=== PATIENT | female | born 1940 | race Caucasian/White ===

== ENCOUNTER 2018-03-22 09:45 | Inpatient (IN) ==
[2018-03-22] MEDS ORDERED: 0.9 % Sodium Chloride 1,000 ML IVC ONE (10:13)
[2018-03-22] MEDS ORDERED: Ondansetron 4 MG/2 ML VIAL IVP ONE (10:13)
--- NOTE | 2018-03-22 10:29 | Emergency Department Note ---
Disposition Clinical Impression: Urinary tract infection, Nausea and vomiting Disposition: Admitted As Inpatient Condition: Good General Adult HPI - General Chief complaint: ED Nausea/Vomiting/Diarrhea Stated complaint: Flu like symptoms Time Seen by Provider: 03/22/18 10:02 - History of Present Illness Pain Scale: 9 - Related Data Home Medications Medication Instructions Recorded Confirmed Acetaminophen [Tylenol] 650 mg PO Q6HR PRN 12/08/17 03/22/18 Aspirin [Adult Aspirin Regimen] 81 mg PO DAILY 12/08/17 03/22/18 Cholecalciferol (Vitamin D3) 1 cap PO DAILY 12/08/17 03/22/18 [Vitamin D3] Cyclobenzaprine [Flexeril] 10 mg PO HS PRN 12/08/17 03/22/18 Furosemide [Lasix] 20 mg PO DAILY 12/08/17 03/22/18 Oxygen [Oxygen] 2 l IN HS 12/08/17 03/22/18 Pravastatin Sodium [Pravachol] 40 mg PO DAILY 12/08/17 03/22/18 Prochlorperazine Maleate 5 mg PO DAILY PRN 12/08/17 03/22/18 [Compazine] Solifenacin Succinate [Vesicare] 10 mg PO DAILY PRN 12/08/17 03/22/18 amLODIPine [Norvasc] 5 mg PO DAILY 12/08/17 03/22/18 Pantoprazole Sodium [Protonix] 20 mg PO DAILY PRN 03/15/18 03/22/18 Albuterol Sulfate [Albuterol 1 puff IH Q4HR 03/22/18 03/22/18 Inhaler] DiphenhydraMINE [Benadryl] 25 mg PO Q6HR PRN 03/22/18 03/22/18 Multivitamin [Multivitamins] 1 each PO DAILY 03/22/18 03/22/18 Pantoprazole Sodium [Protonix] 40 mg PO BID 03/22/18 03/22/18 RX: Docusate [Colace] 50 mg PO BID 03/22/18 03/22/18 Previous Rx's Medication Instructions Recorded RX: Dexamethasone [Decadron] 4 mg PO BID #36 tab 03/15/18 Allergies Allergy/AdvReac Type Severity Reaction Status Date / Time azithromycin [From Zithromax] Allergy See Verified 03/15/18 08:52 Comments hydrochlorothiazide Allergy Hives Verified 03/15/18 08:52 [From Dyazide] levofloxacin [From Levaquin] Allergy Vomiting Verified 03/15/18 08:52 Triamterene [From Dyazide] Allergy Hives Verified 03/15/18 08:52 codeine AdvReac Mild Anxiety Verified 03/15/18 08:52 Hydromorphone [From Dilaudid] AdvReac Anxiety Verified 03/15/18 08:52 Past Medical History - Past Medical History Medical history: Reports: cancer, COPD Surgical history: Reports: appendectomy, colectomy Psychiatric history: Reports: no psych history - Social History Smoking Status: Never smoker Smokeless Tobacco Status: No Alcohol use: Reports: none Drug use: Reports: none Course Vital Signs Temperature 98.6 F 03/22/18 09:48 Pulse Rate 99 03/22/18 09:48 Respiratory Rate 18 03/22/18 09:48 Blood Pressure 100/64 03/22/18 09:48 O2 Sat by Pulse Oximetry 96 03/22/18 09:48 Temperature 98.6 F 03/22/18 10:57 Pulse Rate 81 03/22/18 11:56 Respiratory Rate 16 03/22/18 11:56 Blood Pressure 119/62 03/22/18 11:56 O2 Sat by Pulse Oximetry 97 03/22/18 11:56 Oxygen Delivery Oxygen Delivery Nasal Cannula Medical Decision Making - Lab Data Result diagrams: 03/22/18 10:13 03/22/18 10:13 Lab Results 03/22/18 03/22/18 03/22/18 Range/Units 10:11 10:13 10:13 WBC 12.8 H (4.3-11.1) K/mcL RBC 3.36 L (3.82-4.97) M/mcL Hgb 9.6 L (11.5-15.4) g/dL Hct 29.9 L (35.3-44.9) % MCV 89.0 (83.0-100.0) fL MCH 28.6 (28.0-33.3) pg MCHC 32.1 (31.6-35.5) g/dL RDW 15.5 H (11.5-14.5) % Plt Count 176 (140-400) K/mcL MPV 9.8 (9.4-12.4) fL Seg Neutrophils % 60.0 % Band Neutrophils % 26.0 H (0-4) % Lymphocytes % 6.0 % Monocytes % 4.0 % Eosinophils % 4.0 % Neutrophils # 11.0 H (1.6-8.9) K/mcL Lymphocytes # 0.8 (0.6-4.6) K/mcL Monocytes # 0.5 (0.0-1.3) K/mcL Eosinophils # 0.5 (0.0-0.6) K/mcL Toxic Granulation Present A (Not Present) Dohle Bodies Present A (Not Present) Platelet Estimate Normal (Normal) Sodium 133 L (136-145) mEq/L Potassium 3.8 (3.5-5.1) mEq/L Chloride 102 (98-107) mEq/L Carbon Dioxide 27 (23-29) mEq/L BUN 38 H (8-23) mg/dL Creatinine 2.11 H (0.60-1.20) mg/dL Est GFR ( Amer) 28 L (> 60) Est GFR (Non-Af Amer) 23 L (> 60) BUN/Creatinine Ratio 18 (6-26) Glucose 134 H (70-105) mg/dL Calculated Osmolality 287 (280-300) Calcium 9.1 (8.6-10.3) mg/dL Urine Color Yellow (Yellow) Urine Clarity Cloudy A (Clear) Urine pH 6.0 (5.0-8.0) pH Units Ur Specific [place] 1.017 (1.010-1.025) Urine Protein 30 H (Neg-Trace) mg/dL Urine Glucose (UA) Normal (Normal) mg/dL Urine Ketones Negative (Negative) mg/dL Urine Blood Trace H (Negative) Urine Nitrite Positive A (Negative) Urine Bilirubin Negative (Negative) Urine Urobilinogen Normal (Normal) mg/dL Ur Leukocyte Esterase Large H (Negative) Urine Microscopic RBC 0-3 (0-3) per hpf Urine Microscopic WBC 50-100 H (0-3) per hpf Urine Bacteria Many H (None-Few) per hpf Ur Culture Indicated? YES A (NO) Attestation Statement - Attestation Attestation: I examined this patient and my medical decision-making was reviewed with the Resident Physician. I agree with the documented findings, disposition and treatment plan as described except to the extent set forth below. Patient to ED with nausea vomiting. Sent from the cancer center for dehydration. On examination she is pale. Moaning. Abdomen soft. Incision over the right chest report which is inserted is clean and dry. Plan. Basic labs. Hydration. Admission. Patient improved after IV fluids. Labs reviewed. She does have a UTI. Rocephin started. Admitted to medicine.
[2018-03-22 10:33] LABS: Bilirubin,Urine Negative (Negative); Blood,Urine Trace (Negative); Clarity,Urine Cloudy (Clear); Color,Urine Yellow (Yellow); Glucose,Urine (UA) Normal (Normal); Ketones,Urine Negative (Negative); Leukocyte Esterase,Urine Large (Negative); Nitrite,Urine Positive (Negative); Protein,Urine 30 mg/dL (Neg-Trace); Specific Gravity,Urine 1.017 (1.010-1.025); Urobilinogen,Urine Normal (Normal)
--- NOTE | 2018-03-22 10:41 | Emergency Department Note ---
Disposition Clinical Impression: Urinary tract infection Qualifiers: Urinary tract infection type: acute cystitis Hematuria presence: without hematuria Qualified Code(s): N30.00 - Acute cystitis without hematuria Nausea and vomiting Qualifiers: Vomiting type: unspecified Vomiting Intractability: unspecified Qualified Code( s): R11.2 - Nausea with vomiting, unspecified Disposition: Admitted As Inpatient Condition: Good Time of Disposition: 12:42 Nausea/Vomiting/Diarrhea HPI - General Chief complaint: ED Nausea/Vomiting/Diarrhea Stated complaint: Flu like symptoms Time Seen by Provider: 03/22/18 10:02 Source: patient Mode of arrival: ambulatory Limitations: no limitations Nursing Notes Reviewed: Yes Vital Signs Reviewed: Yes - History of Present Illness HPI Narrative: 77-year-old female presents to the emergency department from the oncology office via Dr. CACERES after patient has been nauseous and not feeling well for the past 3 days. Patient was recently diagnosed with cervical cancer that has metastases to the rectum. She is undergone radiation treatment already with no success and then she underwent chemotherapy her first chemotherapy dose she got was exactly one week ago. She was supposed with her oncologist today when they said that she did not look well monitor come the emergency department to be admitted. Patient has been nauseous and has been vomiting. She did state that she hurts everywhere. She is unsure if this is due to the chemotherapy or if she is sick from some other sickness. Patient otherwise is having no complaints at this time. - Related Data Home Medications Medication Instructions Recorded Confirmed Acetaminophen [Tylenol] 650 mg PO Q6HR PRN 12/08/17 03/22/18 Aspirin [Adult Aspirin Regimen] 81 mg PO DAILY 12/08/17 03/22/18 Cholecalciferol (Vitamin D3) 1 cap PO DAILY 12/08/17 03/22/18 [Vitamin D3] Cyclobenzaprine [Flexeril] 10 mg PO HS PRN 12/08/17 03/22/18 Furosemide [Lasix] 20 mg PO DAILY 12/08/17 03/22/18 Oxygen [Oxygen] 2 l IN HS 12/08/17 03/22/18 Pravastatin Sodium [Pravachol] 40 mg PO DAILY 12/08/17 03/22/18 Prochlorperazine Maleate 5 mg PO DAILY PRN 12/08/17 03/22/18 [Compazine] Solifenacin Succinate [Vesicare] 10 mg PO DAILY PRN 12/08/17 03/22/18 amLODIPine [Norvasc] 5 mg PO DAILY 12/08/17 03/22/18 Pantoprazole Sodium [Protonix] 20 mg PO DAILY PRN 03/15/18 03/22/18 Albuterol Sulfate [Albuterol 1 puff IH Q4HR 03/22/18 03/22/18 Inhaler] DiphenhydraMINE [Benadryl] 25 mg PO Q6HR PRN 03/22/18 03/22/18 Multivitamin [Multivitamins] 1 each PO DAILY 03/22/18 03/22/18 Pantoprazole Sodium [Protonix] 40 mg PO BID 03/22/18 03/22/18 RX: Docusate [Colace] 50 mg PO BID 03/22/18 03/22/18 Previous Rx's Medication Instructions Recorded RX: Dexamethasone [Decadron] 4 mg PO BID #36 tab 03/15/18 Allergies Allergy/AdvReac Type Severity Reaction Status Date / Time azithromycin [From Zithromax] Allergy See Verified 03/15/18 08:52 Comments hydrochlorothiazide Allergy Hives Verified 03/15/18 08:52 [From Dyazide] levofloxacin [From Levaquin] Allergy Vomiting Verified 03/15/18 08:52 Triamterene [From Dyazide] Allergy Hives Verified 03/15/18 08:52 codeine AdvReac Mild Anxiety Verified 03/15/18 08:52 Hydromorphone [From Dilaudid] AdvReac Anxiety Verified 03/15/18 08:52 All systems ED: reviewed and negative except as stated. Review of Systems: As Per HPI Constitutional: Denies: fever, chills, weakness, weight change Eyes: Denies: eye pain, eye discharge, vision change Cardiovascular: Denies: chest pain, palpitations, dyspnea on exertion, edema, syncope Respiratory: Denies: cough, dyspnea, wheezes, hemoptysis, stridor Gastrointestinal: Reports: abdominal pain, nausea, vomiting. Denies: diarrhea, constipation, hematemesis, melena, hematochezia Genitourinary: Denies: dysuria, frequency, hematuria, discharge Musculoskeletal: Denies: back pain, neck pain, arthralgia, myalgia Integumentary: Denies: rash, abrasion, lesions Neurological: Denies: headache, weakness, numbness, paresthesias, confusion, abnormal gait, vertigo Psychiatric: Denies: anxiety, depression, suicidal thoughts, homicidal thoughts , auditory hallucinations, visual hallucinations Endocrine: Denies: fatigue Hematological/Lymphatic: Denies: easy bleeding, easy bruising Allergic/Immunologic: Denies: facial swelling, urticaria Past Medical History - Past Medical History Attestation: Yes The following information was validated with the patient. Source: patient Medical history: Reports: cancer, COPD Surgical history: Reports: appendectomy, colectomy Psychiatric history: Reports: no psych history - Social History Smoking Status: Never smoker Smokeless Tobacco Status: No Alcohol use: Reports: none Drug use: Reports: none Physical Exam - General Limitations: no limitations General appearance: other (Patient does appear very pale and lethargic) - Head Head exam: atraumatic, normocephalic, normal inspection - Eye Eye exam: Present: normal appearance, PERRL, EOMI - ENT ENT exam: normal exam, normal oropharynx, mucous membranes moist - Neck Neck exam: Present: normal inspection, full ROM, trachea midline - Chest Chest inspection: Present: normal inspection, symmetric chest wall rise - Respiratory Respiratory exam: Present: normal lung sounds bilaterally - Cardiovascular Cardiovascular exam: Present: regular rate, normal rhythm, normal heart sounds - Abdominal Exam Abdominal exam: Present: soft, Non-Tender, normal bowel sounds. Absent: tenderness, distention, guarding, rebound, rigidity - Extremities Exam Extremities exam: Present: normal inspection, full ROM. Absent: tenderness, pedal edema - Back Exam Back exam: Present: normal inspection, full ROM. Absent: tenderness, CVA tenderness (R), CVA tenderness (L) - Neurological Exam Neurological exam: Present: alert, oriented X3 - Skin Skin exam: Present: warm, dry, intact, normal color Course Course Narrative: Patient currently is getting treated with chemotherapy for cancer. We will do workup including CBC, BMP, influenza, urinalysis as well as beta give patient IV fluids as well as Zofran for nausea. We will get chest x-ray. Patient most likely will be admitted for further evaluation and symptom control. - Consultations Consultation #1: Spoke with the admitting hospitalist who agreed to admit the patient to their service. Patient is admitted in stable condition. Time: 12:21 Vital Signs Temperature 98.6 F 03/22/18 09:48 Pulse Rate 99 03/22/18 09:48 Respiratory Rate 18 03/22/18 09:48 Blood Pressure 100/64 03/22/18 09:48 O2 Sat by Pulse Oximetry 96 03/22/18 09:48 Temperature 98.6 F 03/22/18 10:57 Pulse Rate 81 03/22/18 11:56 Respiratory Rate 16 03/22/18 11:56 Blood Pressure 119/62 03/22/18 11:56 O2 Sat by Pulse Oximetry 97 03/22/18 11:56 Oxygen Delivery Oxygen Delivery Nasal Cannula Nausea/Vomiting/Diarrhea - MDM Narrative Medical decision making narrative: Patient does have history of cancer. She recently did get chemotherapy which could be the cause of her nausea and vomiting. Urinalysis did show positive nitrites as well as bacteria and white blood cells we decided to treat the patient with Rocephin IV here in the emergency department. Due to patient's nausea vomiting as well as chemotherapy and UTI we felt patient needed admission. Chest x-ray had no acute findings on it all other labs were within normal limits for patient. She definitely creatinine but is right around where her normal creatinine is. Patient was given Phenergan and Zofran which did mildly help patient also got IV bolus of fluids which should help with patient' s generalized color and feeling better. Patient will be admitted to the hospitalist service for a urinary tract infection and nausea and vomiting. Patient is stable at this time. Chest X-Ray 03/22/18 10:13 IMPRESSION: 1. Mild right hemidiaphragm elevation stable compared to a prior CT chest exam 02/25/2018. 2. Stable mild bibasilar atelectasis. No evidence of pneumonia. D/ / 03/22/2018 11:03:11 Eusebio Khan MD / [email or web address] Interpreting Provider: Eusebio Khan MD - Medical Records Medical records reviewed: Yes I reviewed the patient's medical records. - Lab Data Lab results reviewed: Yes I reviewed the patient's lab results. Result diagrams: 03/22/18 10:13 03/22/18 10:13 Lab Results 03/22/18 03/22/18 03/22/18 Range/Units 10:11 10:13 10:13 WBC 12.8 H (4.3-11.1) K/mcL RBC 3.36 L (3.82-4.97) M/mcL Hgb 9.6 L (11.5-15.4) g/dL Hct 29.9 L (35.3-44.9) % MCV 89.0 (83.0-100.0) fL MCH 28.6 (28.0-33.3) pg MCHC 32.1 (31.6-35.5) g/dL RDW 15.5 H (11.5-14.5) % Plt Count 176 (140-400) K/mcL MPV 9.8 (9.4-12.4) fL Seg Neutrophils % 60.0 % Band Neutrophils % 26.0 H (0-4) % Lymphocytes % 6.0 % Monocytes % 4.0 % Eosinophils % 4.0 % Neutrophils # 11.0 H (1.6-8.9) K/mcL Lymphocytes # 0.8 (0.6-4.6) K/mcL Monocytes # 0.5 (0.0-1.3) K/mcL Eosinophils # 0.5 (0.0-0.6) K/mcL Toxic Granulation Present A (Not Present) Dohle Bodies Present A (Not Present) Platelet Estimate Normal (Normal) Sodium 133 L (136-145) mEq/L Potassium 3.8 (3.5-5.1) mEq/L Chloride 102 (98-107) mEq/L Carbon Dioxide 27 (23-29) mEq/L BUN 38 H (8-23) mg/dL Creatinine 2.11 H (0.60-1.20) mg/dL Est GFR ( Amer) 28 L (> 60) Est GFR (Non-Af Amer) 23 L (> 60) BUN/Creatinine Ratio 18 (6-26) Glucose 134 H (70-105) mg/dL Calculated Osmolality 287 (280-300) Calcium 9.1 (8.6-10.3) mg/dL Urine Color Yellow (Yellow) Urine Clarity Cloudy A (Clear) Urine pH 6.0 (5.0-8.0) pH Units Ur Specific [place] 1.017 (1.010-1.025) Urine Protein 30 H (Neg-Trace) mg/dL Urine Glucose (UA) Normal (Normal) mg/dL Urine Ketones Negative (Negative) mg/dL Urine Blood Trace H (Negative) Urine Nitrite Positive A (Negative) Urine Bilirubin Negative (Negative) Urine Urobilinogen Normal (Normal) mg/dL Ur Leukocyte Esterase Large H (Negative) Urine Microscopic RBC 0-3 (0-3) per hpf Urine Microscopic WBC 50-100 H (0-3) per hpf Urine Bacteria Many H (None-Few) per hpf Ur Culture Indicated? YES A (NO) - Radiology Data Radiology results reviewed: Yes I reviewed the patient's radiology results. - EKG Data EKG attestation: Yes I reviewed and interpreted this EKG. EKG results narrative: EKG done at 1152 review myself and the attending shows sinus rhythm at a rate of 84, MI interval 170, QRS 113, QTC 441 with a leftward axis. No acute ST changes no acute T-wave adamantly is no other signs of ischemia. No signs of WPW/Brugada/HOCM. Overall this EKG is unchanged when compared with old one done 09/04/14. Overall nonacute EKG
[2018-03-22 10:43] LABS: Bacteria,Urine Many per hpf (None-Few); RBC,Urine 0-3 per hpf (0-3); WBC,Urine 50-100 per hpf (0-3)
[2018-03-22] MEDS ORDERED: *HR* Promethazine 25 MG/ML VIAL IVP ONE (11:12)
[2018-03-22 11:28] LABS: Hematocrit 29.9 % (35.3-44.9); Hemoglobin 9.6 g/dL (11.5-15.4); Mean Corpuscular HGB Conc 32.1 g/dL (31.6-35.5); Mean Corpuscular Hemoglobin 28.6 pg (28.0-33.3); Mean Platelet Volume 9.8 fL (9.4-12.4); Platelet Count 176 K/mcL (140-400); Red Blood Count 3.36 M/mcL (3.82-4.97); Red Cell Distribution Width 15.5 % (11.5-14.5)
[2018-03-22 11:45] LABS: Calcium 9.1 mg/dL (8.6-10.3); Potassium 3.8 mEq/L (3.5-5.1)
[2018-03-22] MEDS ORDERED: cefTRIAXone 1,000 MG in Water for inj. (sterile) 20 ML 10 ML IVP ONE (11:56)
[2018-03-22 12:37] LABS: Eosinophils # 0.5 K/mcL (0.0-0.6); Lymphocytes # 0.8 K/mcL (0.6-4.6); Monocytes # 0.5 K/mcL (0.0-1.3)
[2018-03-22 12:38] LABS: Dohle Bodies Present (Not Present); Platelet Estimate Normal (Normal); Toxic Granulation Present (Not Present)
[2018-03-22] MEDS ORDERED: Naloxone 0.4 MG/ML INJ IVP PRN (13:07)
[2018-03-22] MEDS ORDERED: Acetaminophen 325 MG TABLET PO PRN (13:12)
--- NOTE | 2018-03-22 13:34 | Internal Med History&Physical ---
<Osvaldo Baron P - Last Filed: 03/22/18 13:42> Date of Encounter: 03/22/18 Time of Encounter: 12:40 Internal Medicine - H&P: HPI Chief complaint: Nausea/Vomiting Admitted From: Home Plans for Post Hospital Care: Home History of present illness: Ms. Eng is a 77 year old female with past medical history significant for hypertension, hyperlipidemia, GERD, arthritis, cervical cancer with mets to bladder and rectum who presents for 3 day history of nausea with vomiting with generalized aches. Also states she has had diarrhea but this is chronic for her. Has had decreased intake since onset of symptoms as PO intake exacerbates symptoms and NPO improves her symptoms. Denies fever, urinary changes, abdominal pain, shortness of breath, or chest pain. Has been taking phenergan at home which she states has helped some. Had appointment today with Dr Weber with oncology who advised patient to come to ER for further evaluation due to nausea and vomiting and generally not appearing well. Patient has completed 6 weeks of radiation and recently started chemo therapy with her first treatment on 03/15/2018 but states she felt fine until these symptoms started on Thursday. Past Med Surg Social Fam HX - Past Medical History Medical history: cancer, COPD, GERD, hyperlipidemia, hypertension, renal disease Additional medical history: ckd Psychiatric history: no psych history - Past Surgical History Surgical History: appendectomy, , colectomy, herniorrhaphy, knee replacement, orthopedic, other Additional surgical history: tumor removal - Social History Smoking Status: Never smoker Smokeless Tobacco Status: No Alcohol use: none Drug use: none Internal Medicine - H&P: Meds Acetaminophen [Tylenol] 650 mg PO Q4H PRN MDD 3000 MG 12/08/17 [History] Aspirin [Adult Aspirin Regimen] 81 mg PO DAILY 12/08/17 [History] Cholecalciferol (Vitamin D3) [Vitamin D3] 1 cap PO DAILY 12/08/17 [History] Cyclobenzaprine [Flexeril] 10 mg PO HS PRN 12/08/17 [History] Furosemide [Lasix] 20 mg PO DAILY 12/08/17 [History] Oxygen [Oxygen] 2 l IN HS 12/08/17 [History] Pravastatin Sodium [Pravachol] 40 mg PO DAILY 12/08/17 [History] Solifenacin Succinate [Vesicare] 10 mg PO DAILY PRN 12/08/17 [History] amLODIPine [Norvasc] 5 mg PO DAILY 12/08/17 [History] RX: Dexamethasone [Decadron] 4 mg PO BID #36 tab 03/15/18 [Rx] Albuterol Neb [Proventil Neb] 2.5 mg IH Q4HR PRN 03/22/18 [History] Albuterol Sulfate [Albuterol Inhaler] 2 puff IH Q4HR PRN 03/22/18 [History] Cholecalciferol (D-3) [Vitamin D] 1,000 unit PO DAILY 03/22/18 [History] DiphenhydraMINE [Benadryl] 25 mg PO Q6HR PRN 03/22/18 [History] Loperamide HCl [Anti-Diarrheal] 2 mg PO DAILY PRN MDD 16MG/DAILY 03/22/18 [ History] Multivitamin [Multivitamins] 1 cap PO DAILY 03/22/18 [History] Pantoprazole Sodium [Protonix] 40 mg PO BID 03/22/18 [History] RX: Docusate [Colace] 50 mg PO BID PRN 03/22/18 [History] RX: Hydrocortisone 1% CREAM [Cortaid] 1 appl TP Q8H PRN 03/22/18 [History] RX: Promethazine [Phenergan] 25 mg PO Q6H PRN 03/22/18 [History] Simethicone [Bicarsim] 80 mg PO QID PRN 03/22/18 [History] 3 Allergy/AdvReac Type Severity Reaction Status Date / Time azithromycin [From Zithromax] Allergy See Verified 03/15/18 08:52 Comments hydrochlorothiazide Allergy Hives Verified 03/15/18 08:52 [From Dyazide] levofloxacin [From Levaquin] Allergy Vomiting Verified 03/15/18 08:52 Triamterene [From Dyazide] Allergy Hives Verified 03/15/18 08:52 codeine AdvReac Mild Anxiety Verified 03/15/18 08:52 Hydromorphone [From Dilaudid] AdvReac Anxiety Verified 03/15/18 08:52 All Systems PM: A 10-system review of systems was performed and is negative for pertinent findings except as documented above in the HPI. - Constitutional Vitals: Temp Pulse Resp BP Pulse Ox 98.6 F 81 16 119/62 97 03/22/18 10:57 03/22/18 11:56 03/22/18 11:56 03/22/18 11:56 03/22/18 11:56 Exam: General: Alert and oriented. Skin:Pale, no rash, no lesions. HEENT:EOM, pupils equal, round and reactive. Cardiovascular:Heart sounds distant. Normal S1 & S2, no rubs, murmurs or gallops. No JVD. Pulse regular. Lungs:Breath sounds decreased, no wheezes or crackles. Abdomen:Soft, non-tender, no rigidity. Extremities:No deformity, tenderness, or clubbing. Bilateral lower extremity non pitting edema noted. Neurological:Normal cognition and motor skills. Pulses:Carotid and radial pulses normal +2. Rest of the physical exam is non contributory. Internal Med - H&P Results - Labs CBC & Chem 7: 03/22/18 10:13 03/22/18 10:13 - Assessment and plan (1) Urinary tract infection Current Visit: Yes Status: Acute Assessment and plan: ER UA cloudy, nitrites positive, with large leukocyte esterase. Urine culture pending. Ceftriaxone started in ER, will continue same tomorrow. Bolus fluids received in ER, will continue IVF at 75ml/hr. Qualifiers: Urinary tract infection type: site unspecified Hematuria presence: with hematuria Qualified Code(s): N39.0 - Urinary tract infection, site not specified; R31.9 - Hematuria, unspecified (2) Sepsis Current Visit: Yes Status: Suspected Assessment and plan: Blood cultures pending. Lactic acid pending. Bolus fluids received in ER, will continue IVF at 75ml/hr. Qualifiers: Sepsis type: sepsis due to unspecified organism Qualified Code(s): A41.9 - Sepsis, unspecified organism (3) Nausea and vomiting Current Visit: Yes Status: Acute Assessment and plan: Zofran and phenergan ordered PRN. Influenza swab ordered in ER. Qualifiers: Vomiting type: unspecified Vomiting Intractability: non-intractable Qualified Code(s): R11.2 - Nausea with vomiting, unspecified (4) Chronic kidney disease Current Visit: Yes Status: Chronic Assessment and plan: Repeat BMP in a.m. Qualifiers: Chronic kidney disease stage: unspecified stage Qualified Code(s): N18.9 - Chronic kidney disease, unspecified (5) Hemoglobin decreased Current Visit: Yes Status: Chronic Assessment and plan: Repeat CBC in a.m. - Time Spent With Patient Total time spent is greater than 50% in coordination of care (as documented) at patient's floor/unit and/or counseling patient: <Malachi Pickett - Last Filed: 03/22/18 17:01> Date of Encounter: 03/22/18 Time of Encounter: 14:20 Internal Medicine - H&P: HPI History of present illness: Ms. Eng is a 77 year old female Past Med Surg Social Fam HX - Family History Mother History Unknown: Yes Adopted: Yes Father History Unknown: Yes Adopted: Yes All Systems PM: A 10-system review of systems was performed and is negative for pertinent findings except as documented above in the HPI. - Constitutional Vitals: Temp Pulse Resp BP Pulse Ox 98.5 F 81 16 107/66 96 03/22/18 13:37 03/22/18 13:37 03/22/18 13:37 03/22/18 13:37 03/22/18 13:37 Internal Med - H&P Results - Labs CBC & Chem 7: 03/22/18 10:13 03/22/18 10:13 - Assessment and plan (1) Sepsis Current Visit: Yes Status: Suspected Qualifiers: Sepsis type: sepsis due to unspecified organism Qualified Code(s): A41.9 - Sepsis, unspecified organism (2) Urinary tract infection Current Visit: Yes Status: Acute Qualifiers: Urinary tract infection type: site unspecified Hematuria presence: with hematuria Qualified Code(s): N39.0 - Urinary tract infection, site not specified; R31.9 - Hematuria, unspecified (3) Nausea and vomiting Current Visit: Yes Status: Acute Qualifiers: Vomiting type: unspecified Vomiting Intractability: non-intractable Qualified Code(s): R11.2 - Nausea with vomiting, unspecified (4) Chronic kidney disease Current Visit: Yes Status: Chronic Qualifiers: Chronic kidney disease stage: unspecified stage Qualified Code(s): N18.9 - Chronic kidney disease, unspecified (5) Hemoglobin decreased Current Visit: Yes Status: Chronic - Time Spent With Patient Total time spent is greater than 50% in coordination of care (as documented) at patient's floor/unit and/or counseling patient: - Attending Attestation I saw and evaluated this patient and my medical decision-making was reviewed with the Nurse Practitioner. I agree with the documented findings, disposition and treatment plan as described except to any changes set forth below. We independently had [id number] contact with the patient. 77-year-old female patient with history of hypertension, hyperlipidemia, cervical cancer with metastases to the bladder and rectum presented to the ER with complaints of nausea vomiting and generalized body aches. She was in her oncologist's office for routine follow-up visit when she was found to be ill- appearing and weak. As such was sent to the ER. Patient had recently completed radiation treatment and started chemotherapy 1 week back. She reports that her current symptoms started on Thursday. She denies any chest pain or palpitations. She does have chronic lower extremity swelling. On examination, patient appears pale and weak. Heart sounds are normal. Breath sounds are normal. Patient has bilateral lower extremity swelling. Abdomen is soft nontender. Sepsis from urinary tract infection: IV antibiotics. Follow culture results. Cervical cancer with metastases to bladder and rectum: Follow up with oncology as outpatient. Chronic kidney disease stage III: Creatinine appears to be at baseline. Chronic anemia: Hemoglobin 9.6. Could be from chronic kidney disease with superimposed chemotherapy related reduction. Monitor blood counts closely. Generalized weakness: Consult physical therapy for evaluation.
[2018-03-22] MEDS ORDERED: Simethicone 80 MG TAB.CHEW PO PRN (14:47)
[2018-03-22] MEDS ORDERED: Albuterol 2.5 MG/3 ML NEBULIZER IH PRN (14:47)
[2018-03-22] MEDS ORDERED: Ondansetron 4 MG/2 ML VIAL IVP PRN (17:00)
[2018-03-22] MEDS: 0.9 % Sodium Chloride 1,000 ML IVC SCH (17:24)
[2018-03-22] MEDS ORDERED: *HR* Promethazine 25 MG/ML VIAL IM PRN (17:25)
[2018-03-22] MEDS ORDERED: NON-FORMULARY MEDICATION 1 EACH EACH (Oxygen [Oxygen] 2 L) IN SCH (21:00)
[2018-03-23 06:22] LABS: Hematocrit 27.8 % (35.3-44.9); Hemoglobin 8.7 g/dL (11.5-15.4); Mean Corpuscular HGB Conc 31.3 g/dL (31.6-35.5); Mean Corpuscular Hemoglobin 29.1 pg (28.0-33.3); Mean Platelet Volume 9.6 fL (9.4-12.4); Platelet Count 160 K/mcL (140-400); Red Blood Count 2.99 M/mcL (3.82-4.97); Red Cell Distribution Width 15.4 % (11.5-14.5)
[2018-03-23 06:41] LABS: Calcium 8.3 mg/dL (8.6-10.3); Potassium 3.5 mEq/L (3.5-5.1)
[2018-03-23] MEDS: 0.9 % Sodium Chloride 1,000 ML IVC SCH (07:26)
[2018-03-23 07:36] LABS: Lymphocytes # 0.7 K/mcL (0.6-4.6); Microcytosis Present (Not Present); Monocytes # 1.5 K/mcL (0.0-1.3); Platelet Estimate Normal (Normal)
[2018-03-23] MEDS: Aspirin Enteric Coated 81 MG Tablet PO SCH (09:04)
[2018-03-23] MEDS: Cholecalciferol (D-3) 1,000 UNIT TABLET PO SCH ×2 (09:04→09:20)
[2018-03-23] MEDS: Furosemide 20 MG TABLET PO SCH (09:04)
[2018-03-23] MEDS: Multivit/Ca/Min/Fe/FA 1 TAB TABLET PO SCH (09:04)
[2018-03-23] MEDS: amLODIPine 5 MG TABLET PO SCH (09:05)
[2018-03-23] MEDS: cefTRIAXone 1,000 MG in Water for inj. (sterile) 20 ML 10 ML IVP SCH (09:06)
[2018-03-23 11:26] LABS: Hematocrit 26.6 % (35.3-44.9); Hemoglobin 8.5 g/dL (11.5-15.4)
--- NOTE | 2018-03-23 17:14 | Internal Med Progress Note ---
Hospitalist Progress Note - Encounter Date of Encounter: 03/23/18 Time of Encounter: 11:00 - Subjective Interval History: patient seen and examined at bedside - Denies any CP or SOB - Exam Vitals: Temp Pulse Resp BP Pulse Ox 98.3 F 78 16 124/69 96 03/23/18 15:07 03/23/18 15:07 03/23/18 15:07 03/23/18 15:07 03/23/18 15:07 Exam: General: Alert and oriented. Skin:Pale, no rash, no lesions. HEENT:EOM, pupils equal, round and reactive. Cardiovascular:Heart sounds distant. Normal S1 & S2, no rubs, murmurs or gallops. No JVD. Pulse regular. Lungs:Breath sounds decreased, no wheezes or crackles. Abdomen:Soft, non-tender, no rigidity. Extremities:No deformity, tenderness, or clubbing. Bilateral lower extremity non pitting edema noted. Neurological:Normal cognition and motor skills. Pulses:Carotid and radial pulses normal +2. Rest of the physical exam is non contributory. - Assessment and Plan (1) Urinary tract infection Current Visit: Yes Status: Acute Assessment and Plan: ER UA cloudy, nitrites positive, with large leukocyte esterase. Urine culture pending. Cont with rocephine (2) Nausea and vomiting Current Visit: Yes Status: Acute Assessment and Plan: Improving - tolerating oral intake Cont Zofran and phenergan ordered PRN. Influenza swab ordered in ER. (3) Sepsis Current Visit: Yes Status: Suspected Assessment and Plan: Blood cultures pending. Lactic acid -0.9 Bolus fluids received in ER VS stable (4) Chronic kidney disease Current Visit: Yes Status: Chronic Assessment and Plan: Appears stable - GFR 26 Creatinine stable 1.90 we will cont to monitor avoid nephrotoxins (5) Hemoglobin decreased Current Visit: Yes Status: Chronic Assessment and Plan: Patient is receiving chemotherapy - we will monitor h/h every 6h check fecal occult anemia workup . - Time Spent with Patient Total time spent is greater than 50% in coordination of care (as documented) at patient's floor/unit and/or counseling patient: Internal Medicine: Result - Labs CBC & Chem 7: 03/23/18 11:05 03/23/18 06:10 Labs: Short CBC 03/23/18 03/23/18 Range/Units 06:10 11:05 WBC 12.2 H (4.3-11.1) K/mcL Hgb 8.7 L 8.5 L (11.5-15.4) g/dL Hct 27.8 L 26.6 L (35.3-44.9) % Plt Count 160 (140-400) K/mcL Neutrophils # 10.0 H (1.6-8.9) K/mcL BMP 03/23/18 06:10 Sodium 138 Potassium 3.5 Chloride 108 H Carbon Dioxide 25 BUN 30 H Creatinine 1.90 H Glucose 101 Calcium 8.3 L Consult Discharge Plan - Plan Referrals: Adriel Guzmán MD [Primary Care Provider] - NONE,PCP [Family Provider] - (1) Urinary tract infection Qualifiers: Urinary tract infection type: site unspecified Hematuria presence: with hematuria Qualified Code(s): N39.0 - Urinary tract infection, site not specified; R31.9 - Hematuria, unspecified (2) Nausea and vomiting Qualifiers: Vomiting type: unspecified Vomiting Intractability: non-intractable Qualified Code(s): R11.2 - Nausea with vomiting, unspecified (3) Sepsis Qualifiers: Sepsis type: sepsis due to unspecified organism Qualified Code(s): A41.9 - Sepsis, unspecified organism (4) Chronic kidney disease Qualifiers: Chronic kidney disease stage: stage 4 (severe) Qualified Code(s): N18.4 - Chronic kidney disease, stage 4 (severe)
[2018-03-23 17:23] LABS: Hemoglobin 8.5 g/dL (11.5-15.4)
[2018-03-23 23:15] LABS: Hematocrit 27.2 % (35.3-44.9); Hemoglobin 8.5 g/dL (11.5-15.4)
[2018-03-24 03:40] LABS: Immature Reticulocyte % 37.5 % (11.0-38.0); Mean Corpuscular HGB Conc 30.8 g/dL (31.6-35.5); Mean Corpuscular Hemoglobin 28.3 pg (28.0-33.3); Mean Corpuscular Volume 91.9 fL (83.0-100.0); Mean Platelet Volume 9.4 fL (9.4-12.4); Platelet Count 164 K/mcL (140-400); Red Blood Count 2.83 M/mcL (3.82-4.97); Red Cell Distribution Width 15.6 % (11.5-14.5); Retculocyte # 0.02 M/mcL (0.05-0.10); Reticulocyte % 0.7 % (1.6-2.8)
[2018-03-24 04:14] LABS: Eosinophils # 0.3 K/mcL (0.0-0.6); Lymphocytes # 1.4 K/mcL (0.6-4.6); Monocytes # 0.8 K/mcL (0.0-1.3); Neutrophils # 11.2 K/mcL (1.6-8.9); Platelet Estimate Normal (Normal)
[2018-03-24 04:29] LABS: Calcium 8.2 mg/dL (8.6-10.3); Potassium 3.7 mEq/L (3.5-5.1)
[2018-03-24 04:30] LABS: Iron 20 mcg/dL (50-170)
[2018-03-24 04:49] LABS: Ferritin 251 ng/mL (10-120)
[2018-03-24 04:52] LABS: Folate 21.3 ng/mL (3.0-16.0)
[2018-03-24 05:04] LABS: % Iron Saturation 9 % (15-50); Transferrin 157 mg/dL (203-362)
[2018-03-24] MEDS: Aspirin Enteric Coated 81 MG Tablet PO SCH (11:27)
[2018-03-24] MEDS: Multivit/Ca/Min/Fe/FA 1 TAB TABLET PO SCH (11:27)
[2018-03-24] MEDS: Cholecalciferol (D-3) 1,000 UNIT TABLET PO SCH ×2 (11:27→11:32)
[2018-03-24] MEDS: Furosemide 20 MG TABLET PO SCH (11:28)
[2018-03-24] MEDS: cefTRIAXone 1,000 MG in Water for inj. (sterile) 20 ML 10 ML IVP SCH (11:28)
[2018-03-24] MEDS: amLODIPine 5 MG TABLET PO SCH (11:31)
--- NOTE | 2018-03-24 17:43 | Electrocardiograph Report ---
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
--- NOTE | 2018-03-24 19:33 | Internal Med Progress Note ---
Hospitalist Progress Note - Encounter Date of Encounter: 03/24/18 Time of Encounter: 12:00 - Subjective Interval History: patient seen and examined at bedside - Denies any CP or SOB nausea or vomiting tolerating oral intake - Exam Vitals: Temp Pulse Resp BP Pulse Ox 98.0 F 81 16 121/74 97 03/24/18 18:53 03/24/18 18:53 03/24/18 18:53 03/24/18 18:53 03/24/18 18:53 Exam: General: Alert and oriented. Skin:Pale, no rash, no lesions. HEENT:EOM, pupils equal, round and reactive. Cardiovascular:Heart sounds distant. Normal S1 & S2, no rubs, murmurs or gallops. No JVD. Pulse regular. Lungs:Breath sounds decreased, no wheezes or crackles. Abdomen:Soft, non-tender, no rigidity. Extremities:No deformity, tenderness, or clubbing. Bilateral lower extremity non pitting edema noted. Neurological:Normal cognition and motor skills. Pulses:Carotid and radial pulses normal +2. Rest of the physical exam is non contributory. - Assessment and Plan (1) Urinary tract infection Current Visit: Yes Status: Acute Assessment and Plan: ER UA cloudy, nitrites positive, with large leukocyte esterase. Urine culture Klebsiella pneumonia - sensitive to Rocephine Cont with rocephine day 2 (2) Nausea and vomiting Current Visit: Yes Status: Acute Assessment and Plan: Improving - tolerating oral intake Cont Zofran and phenergan ordered PRN. Influenza swab ordered in ER- which was negative (3) Sepsis Current Visit: Yes Status: Suspected Assessment and Plan: Blood cultures pending. Lactic acid -0.9 Bolus fluids received in ER VS stable (4) Chronic kidney disease Current Visit: Yes Status: Chronic Assessment and Plan: Appears stable - creatinine better than baseline we will cont to monitor avoid nephrotoxins (5) Hemoglobin decreased Current Visit: Yes Status: Chronic Assessment and Plan: Patient is receiving chemotherapy - we will monitor h/h every 6h check fecal occult anemia workup - we will start on iron supplements I did discuss with oncology [employer]ER - who advises that Taxol and carboplatin may be contributing to drop in Hgb - advise to follow up with oncology as outpatient and have CBC check on Thursday . - Time Spent with Patient Total time spent is greater than 50% in coordination of care (as documented) at patient's floor/unit and/or counseling patient: Internal Medicine: Result - Labs CBC & Chem 7: 03/24/18 03:22 03/24/18 03:22 Labs: Short CBC 03/23/18 03/24/18 Range/Units 23:00 03:22 WBC 13.6 H (4.3-11.1) K/mcL Hgb 8.5 L 8.0 L (11.5-15.4) g/dL Hct 27.2 L 26.0 L (35.3-44.9) % Plt Count 164 (140-400) K/mcL Neutrophils # 11.2 H (1.6-8.9) K/mcL BMP 03/24/18 03:22 Sodium 139 Potassium 3.7 Chloride 110 H Carbon Dioxide 24 BUN 28 H Creatinine 1.82 H Glucose 113 H Calcium 8.2 L Consult Discharge Plan - Plan Referrals: Adriel Guzmán MD [Primary Care Provider] - NONE,PCP [Family Provider] - (1) Urinary tract infection Qualifiers: Urinary tract infection type: site unspecified Hematuria presence: with hematuria Qualified Code(s): N39.0 - Urinary tract infection, site not specified; R31.9 - Hematuria, unspecified (2) Nausea and vomiting Qualifiers: Vomiting type: unspecified Vomiting Intractability: non-intractable Qualified Code(s): R11.2 - Nausea with vomiting, unspecified (3) Sepsis Qualifiers: Sepsis type: sepsis due to unspecified organism Qualified Code(s): A41.9 - Sepsis, unspecified organism (4) Chronic kidney disease Qualifiers: Chronic kidney disease stage: stage 4 (severe) Qualified Code(s): N18.4 - Chronic kidney disease, stage 4 (severe)
[2018-03-25 04:28] LABS: Eosinophils # 0.3 K/mcL (0.0-0.6); Hematocrit 27.5 % (35.3-44.9); Hemoglobin 8.6 g/dL (11.5-15.4); Mean Corpuscular HGB Conc 31.3 g/dL (31.6-35.5); Mean Corpuscular Hemoglobin 29.2 pg (28.0-33.3); Mean Corpuscular Volume 93.2 fL (83.0-100.0); Mean Platelet Volume 9.6 fL (9.4-12.4); Nucleated Red Blood Cells 0.2 /100 WBC (0); Platelet Count 162 K/mcL (140-400); Red Blood Count 2.95 M/mcL (3.82-4.97); Red Cell Distribution Width 15.6 % (11.5-14.5)
[2018-03-25 04:41] LABS: Calcium 8.4 mg/dL (8.6-10.3); Potassium 3.6 mEq/L (3.5-5.1)
[2018-03-25 04:45] LABS: Lymphocytes # 1.3 K/mcL (0.6-4.6); Monocytes # 0.8 K/mcL (0.0-1.3); Neutrophils # 10.6 K/mcL (1.6-8.9); Platelet Estimate Normal (Normal)
[2018-03-25 04:46] LABS: Polychromasia 1+ (Not Present)
--- NOTE | 2018-03-25 09:23 | Discharge Summary ---
- NOTES TO OUTPATIENT PROVIDER Notes to Outpatient Provider: follow up with oncology- monitor CBC Date of Encounter: 03/25/18 Time of Encounter: 09:20 - Discharge Diagnosis (1) Urinary tract infection Priority: Primary Status: Acute Qualifiers: Urinary tract infection type: site unspecified Hematuria presence: with hematuria Qualified Code(s): N39.0 - Urinary tract infection, site not specified; R31.9 - Hematuria, unspecified (2) Nausea and vomiting Priority: Secondary Status: Acute Qualifiers: Vomiting type: unspecified Vomiting Intractability: non-intractable Qualified Code(s): R11.2 - Nausea with vomiting, unspecified (3) Sepsis Priority: Secondary Status: Suspected Qualifiers: Sepsis type: sepsis due to unspecified organism Qualified Code(s): A41.9 - Sepsis, unspecified organism (4) Chronic kidney disease Priority: Secondary Status: Chronic Qualifiers: Chronic kidney disease stage: stage 4 (severe) Qualified Code(s): N18.4 - Chronic kidney disease, stage 4 (severe) (5) Hemoglobin decreased Priority: Secondary Status: Chronic Hospital course: Ms. Eng is a 77 year old female PMH of HTN HLD GERD arthritis cervical cancer with mets to bladder and rectum receiving radiation and chemo first dose o03/22/2018- presented to the ED with a 3 day hx of N/V/D and general malaise - She does admit that she has chronic diarrhea. She has had decreased intake since onset of sx Denies any fever urinary changes abdominal pain- she was seen by her oncologist and was advised to go to ED. On presentation she is afebrile urinalysis did show UTI CXR with no acute findings She was admitted and given IV fluid and rocephin Her sx improved and she able to tolerate food and liquids. Her culture did grow Klebsiella pneumonia which is sensitive to Rocephin- She received 3 days- I discussed with pharmacy since patient is allergic to levaquin- we will place on Bactrim SS dt renal function. During admission she did have a drop in her HGB. Anemai panel did show iron deficiency I did start her on iron supplement and spoke with oncology- who suspects the hgb drop rt chemotherapy. I will have patient recheck CBC on Thursday and follow up with oncology next week. She is hemodynamically stable and is ready for discharge Discharge discussed with: patient - Time Spent with Patient Total time spent providing and/or coordinating discharge services: - Discharge Medications Prescriptions: Docusate [Colace] 100 mg PO DAILY #30 capsule Ferrous Sulfate 325 mg PO DAILY@0800 #30 tablet Sulfamethoxazole/Trimeth SS [Bactrim SS] 1 each PO BID #8 tablet Home Medications: Acetaminophen [Tylenol] 650 mg PO Q4H PRN MDD 3000 MG 12/08/17 [History] Aspirin [Adult Aspirin Regimen] 81 mg PO DAILY 12/08/17 [History] Cholecalciferol (Vitamin D3) [Vitamin D3] 1 cap PO DAILY 12/08/17 [History] Cyclobenzaprine [Flexeril] 10 mg PO HS PRN 12/08/17 [History] Furosemide [Lasix] 20 mg PO DAILY 12/08/17 [History] Oxygen 2 l IN HS 12/08/17 [History] Pravastatin Sodium [Pravachol] 40 mg PO DAILY 12/08/17 [History] Solifenacin Succinate [Vesicare] 10 mg PO DAILY PRN 12/08/17 [History] amLODIPine [Norvasc] 5 mg PO DAILY 12/08/17 [History] Dexamethasone [Decadron] 4 mg PO BID #36 tab 03/15/18 [Rx] Albuterol Neb [Proventil Neb] 2.5 mg IH Q4HR PRN 03/22/18 [History] Albuterol Sulfate [Albuterol Inhaler] 2 puff IH Q4HR PRN 03/22/18 [History] Cholecalciferol (D-3) [Vitamin D] 1,000 unit PO DAILY 03/22/18 [History] DiphenhydraMINE [Benadryl] 25 mg PO Q6HR PRN 03/22/18 [History] Docusate [Colace] 50 mg PO BID PRN 03/22/18 [History] Hydrocortisone 1% CREAM [Cortaid] 1 appl TP Q8H PRN 03/22/18 [History] Loperamide HCl [Anti-Diarrheal] 2 mg PO DAILY PRN MDD 16MG/DAILY 03/22/18 [ History] Multivitamin [Multivitamins] 1 cap PO DAILY 03/22/18 [History] Pantoprazole Sodium [Protonix] 40 mg PO BID 03/22/18 [History] Promethazine [Phenergan] 25 mg PO Q6H PRN 03/22/18 [History] Simethicone [Bicarsim] 80 mg PO QID PRN 03/22/18 [History] Docusate [Colace] 100 mg PO DAILY #30 capsule 03/25/18 [Rx] Ferrous Sulfate 325 mg PO DAILY@0800 #30 tablet 03/25/18 [Rx] Sulfamethoxazole/Trimeth SS [Bactrim SS] 1 each PO BID #8 tablet 03/25/18 [Rx] Allergies/Adverse Reactions: 3 Allergy/AdvReac Type Severity Reaction Status Date / Time azithromycin [From Zithromax] Allergy See Verified 03/15/18 08:52 Comments hydrochlorothiazide Allergy Hives Verified 03/15/18 08:52 [From Dyazide] levofloxacin [From Levaquin] Allergy Vomiting Verified 03/15/18 08:52 Triamterene [From Dyazide] Allergy Hives Verified 03/15/18 08:52 codeine AdvReac Mild Anxiety Verified 03/15/18 08:52 Hydromorphone [From Dilaudid] AdvReac Anxiety Verified 03/15/18 08:52 Date of admission: 03/24/18 19:39 Primary care physician: Adriel Guzmán MD Discharging clinician: Cathi Leal Anticipated date of discharge: 03/25/18 - Constitutional Vitals: Temp Pulse Resp BP Pulse Ox 98.2 F 74 16 115/53 96 03/25/18 07:36 03/25/18 07:36 03/25/18 07:36 03/25/18 07:36 03/25/18 07:36 General appearance: Present: A&O X 3 Exam: see above - Head Head exam: Present: atraumatic, normocephalic - Eye Eye exam: Present: PERRL, conjuntiva pink, sclera anicteric Pupils: Present: PERRL - Neck Neck exam general surgery: Present: supple, trachea midline. Absent: lymphadenopathy - Respiratory Respiratory exam: Present: CTAB. Absent: accessory muscle use, rales, rhonchi, wheezes - Cardiovascular Cardiovascular exam: Present: RRR, +S1, +S2. Absent: diastolic murmur, gallop, rubs, systolic murmur - GI/Abdominal GI/Abdominal exam: Present: normal bowel sounds, soft, no peritoneal signs. Absent: distended, tenderness - Extremities Exam Extremities exam: Present: warm, radial pulses palpable and symmetrical. Absent : calf tenderness, cyanotic, pedal edema - Neurological Exam Neurological exam: Present: CN II-XII intact, oriented X3, no focal deficits. Absent: pronater drift, facial droop, speech deficit - Skin Skin exam: Present: dry, intact - Patient Status Disposition: Home, Self-Care Condition: Good Functional capacity at discharge: independent ambulation Overall status at discharge: patient is back to baseline - Ambulatory Orders Ambulatory Orders: Complete Blood Count [HEME] Time Frame: 03/26/18, Facility: [facility], Location: Lab - Discharge Instructions Instructions: Urinary Tract Infection in Women (DC) Follow Up With: Hazel Weber MD [Partnered Physician] - 04/05/18 8:45 am Adriel Guzmán MD [Primary Care Provider] - 04/01/18 3:30 pm - Diet and Activity Activity: increase activity as tolerated Diet: advance to your usual diet
[2018-03-25] MEDS: Aspirin Enteric Coated 81 MG Tablet PO SCH (09:41)
[2018-03-25] MEDS: Cholecalciferol (D-3) 1,000 UNIT TABLET PO SCH ×2 (09:41→16:03)
[2018-03-25] MEDS: Multivit/Ca/Min/Fe/FA 1 TAB TABLET PO SCH (09:41)
[2018-03-25] MEDS: Furosemide 20 MG TABLET PO SCH (09:41)
[2018-03-25] MEDS: amLODIPine 5 MG TABLET PO SCH (09:41)
[2018-03-25] MEDS: cefTRIAXone 1,000 MG in Water for inj. (sterile) 20 ML 10 ML IVP SCH (09:42)
[2018-03-25 11:21] VITALS: BP 121/95
== END 2018-03-25 16:46 | disposition home or self-care (01) | DRG 872 ==
LOC: 3BNU 09:45 → EMEROOARM 09:45 → 3BNU 13:06
PROVIDERS: ADMIT Internal Medicine; ATTEND Internal Medicine

== ENCOUNTER 2018-08-12 19:38 | Observation (INO) ==
--- NOTE | 2018-08-12 20:00 | Emergency Department Note ---
Disposition Clinical Impression: Uterine cancer Qualifiers: Malignant neoplasm of uterus location: unspecified site of uterus Qualified Code(s): C55 - Malignant neoplasm of uterus, part unspecified Nausea and vomiting Qualifiers: Vomiting type: unspecified Vomiting Intractability: non-intractable Qualified Code(s): R11.2 - Nausea with vomiting, unspecified UTI (urinary tract infection) Qualifiers: Urinary tract infection type: acute cystitis Hematuria presence: without hematuria Qualified Code(s): N30.00 - Acute cystitis without hematuria Leukocytosis Qualifiers: Leukocytosis type: unspecified Qualified Code(s): D72.829 - Elevated white blood cell count, unspecified Disposition: Admitted As Inpatient Condition: Fair Referrals: Adriel Guzmán MD [Primary Care Provider] - Forms: ED Satisfaction Letter Time of Disposition: 22:18 General Adult HPI - General Chief complaint: ED Nausea/Vomiting/Diarrhea Stated complaint: n/v Time Seen by Provider: 08/12/18 19:52 Source: patient, EMS Limitations: age Nursing Notes Reviewed: Yes Vital Signs Reviewed: Yes - History of Present Illness HPI Narrative: Patient with a history of uterine cancer presents from the long-term with a temperature 100.5 degrees there and she has nausea and vomiting and also has diarrhea however states the diarrhea is chronic. Was admitted one month ago to [facility] in [place] and treated for urinary tract infection with antibiotics. She is full code. She did have abdominal pain earlier which is resolved at the present time. She does use oxygen as needed. Denies any coughing but does have some rhinorrhea. No sneezing. No blurred vision. No dysuria or urinary frequency or blood in the urine or stool, no pain or numbness of the extremities skin rash or bruising of the skin. Social history: No smoking. She was diagnosed with uterine cancer 11 months ago. Last dose of chemotherapy was 6 weeks ago Pain Scale: 0 - Related Data Home Medications Medication Instructions Recorded Confirmed Acetaminophen [Tylenol] 650 mg PO Q4H PRN MDD 3000 MG 12/08/17 07/05/18 Aspirin [Adult Aspirin Regimen] 81 mg PO DAILY 12/08/17 07/05/18 Cyclobenzaprine [Flexeril] 10 mg PO HS PRN 12/08/17 07/05/18 Furosemide [Lasix] 20 mg PO DAILY 12/08/17 07/05/18 Oxygen 2 l IN HS 12/08/17 07/05/18 Pravastatin Sodium [Pravachol] 40 mg PO DAILY 12/08/17 07/05/18 Solifenacin Succinate [Vesicare] 10 mg PO DAILY PRN 12/08/17 07/05/18 Albuterol Sulfate [Albuterol 2 puff IH Q4HR PRN 03/22/18 07/05/18 Inhaler] Cholecalciferol (D-3) [Vitamin D] 1,000 unit PO DAILY 03/22/18 07/05/18 Multivitamin [Multivitamins] 1 cap PO DAILY 03/22/18 07/05/18 Pantoprazole Sodium [Protonix] 40 mg PO BID 03/22/18 07/05/18 Promethazine [Phenergan] 25 mg PO Q6H PRN 03/22/18 07/05/18 Albuterol Neb [Proventil Neb] 2.5 mg IH Q4HR PRN 07/05/18 07/05/18 Ciprofloxacin HCl [Cipro] 500 mg PO BID 07/05/18 07/05/18 DiphenhydraMINE [Benadryl] 25 mg PO Q6HR PRN 07/05/18 07/05/18 Docusate Sodium [Dok] 100 mg PO BID PRN 07/05/18 07/05/18 Ondansetron HCl [Zofran] 4 mg PO DAILY PRN 07/05/18 07/05/18 amLODIPine [Norvasc] 5 mg PO DAILY 07/05/18 07/05/18 Previous Rx's Medication Instructions Recorded Ferrous Sulfate 325 mg PO DAILY@0800 #30 tablet 03/25/18 Allergies Allergy/AdvReac Type Severity Reaction Status Date / Time azithromycin [From Zithromax] Allergy See Verified 06/28/18 09:00 Comments hydrochlorothiazide Allergy Hives Verified 06/28/18 09:00 [From Dyazide] levofloxacin [From Levaquin] Allergy Vomiting Verified 06/28/18 09:00 Triamterene [From Dyazide] Allergy Hives Verified 06/28/18 09:00 codeine AdvReac Mild Anxiety Verified 06/28/18 09:00 hydromorphone [From Dilaudid] AdvReac Anxiety Verified 06/28/18 09:00 All systems ED: reviewed and negative except as stated. Review of Systems: As Per HPI Past Medical History - Past Medical History Medical history: Reports: cancer, COPD, GERD, hyperlipidemia, hypertension, renal disease Surgical history: Reports: appendectomy, , cholecystectomy, colectomy, herniorrhaphy, knee replacement, orthopedic, other Psychiatric history: Reports: no psych history - Social History Smoking Status: Never smoker Smokeless Tobacco Status: No Alcohol use: Reports: none Drug use: Reports: none Physical Exam CONSTITUTIONAL: Alert and oriented X3, well-nourished, well appearing, in no apparent distress HEAD: Normocephalic; atraumatic. EYES: PERRL, no scleral icterus. NOSE: The nose is normal in appearance without rhinorrhea RESP: Normal chest excursion with respiration; breath sounds clear and equal bilaterally; no wheezes, rhonchi, or rales CARD: Regular rhythm, without murmurs, rub or gallop ABD: Non-distended; non-tender, soft,without rigidity, rebound or guarding SKIN: Normal for age and race; warm and dry; no apparent lesions Extremities: No redness or signs of infection bilateral lower extremities - General Limitations: age General appearance: alert Course Vital Signs Temperature 100.3 F H 08/12/18 19:40 Pulse Rate 110 08/12/18 19:40 Respiratory Rate 20 08/12/18 19:40 Blood Pressure 134/68 08/12/18 19:40 O2 Sat by Pulse Oximetry 97 08/12/18 19:40 Temperature 100.3 F H 08/12/18 19:40 Pulse Rate 108 08/12/18 21:15 Respiratory Rate 17 08/12/18 21:15 Blood Pressure 134/62 08/12/18 21:15 O2 Sat by Pulse Oximetry 99 08/12/18 21:15 Oxygen Delivery Oxygen Delivery Room Air Medical Decision Making - MDM Narrative Medical decision making narrative: Labs including lactate, blood cultures, urine testing, chest x-ray and the patient will be started on broad-spectrum antibiotics based on her fever with temperature 100.5 degrees and admitted to the hospital 1999 I did review the patient's EKG showing sinus tachycardia with rate of 109 and some premature atrial complexes. Without acute ischemic change but there is some nonspecific T changes in lead aVL 2146 I did speak with the hospitalist and we did review the lab results showing urinary tract infection, leukocytosis, the patient stop chemotherapy 6 weeks ago and she will be admitted to the hospital and I did write for Zosyn and vancomycin which should cover hospital infections 2016 - Medical Records Medical records reviewed: Yes I reviewed the patient's medical records. - Lab Data Lab results reviewed: Yes I reviewed the patient's lab results. Result diagrams: 08/12/18 20:18 08/12/18 20:18 Lab Results 08/12/18 08/12/18 08/12/18 Range/Units 20:18 20:18 20:18 WBC 20.9 H (4.3-11.1) K/mcL RBC 3.49 L (3.82-4.97) M/mcL Hgb 10.3 L (11.5-15.4) g/dL Hct 32.8 L (35.3-44.9) % MCV 94.0 (83.0-100.0) fL MCH 29.5 (28.0-33.3) pg MCHC 31.4 L (31.6-35.5) g/dL RDW 16.3 H (11.5-14.5) % Plt Count 270 (140-400) K/mcL MPV 9.6 (9.4-12.4) fL Immature Gran % 0.7 (0-4) % Seg Neutrophils % 91.1 % Lymphocytes % 2.0 % Monocytes % 6.0 % Eosinophils % 0.0 % Basophils % 0.2 % Neutrophils # 19.0 H (1.6-8.9) K/mcL Lymphocytes # 0.4 L (0.6-4.6) K/mcL Monocytes # 1.3 (0.0-1.3) K/mcL Eosinophils # 0.0 (0.0-0.6) K/mcL Basophils # 0.0 (0.0-0.2) K/mcL Sodium 136 (136-145) mEq/L Potassium 4.1 (3.5-5.1) mEq/L Chloride 104 (98-107) mEq/L Carbon Dioxide 21 L (23-29) mEq/L BUN 30 H (8-23) mg/dL Creatinine 2.39 H (0.60-1.20) mg/dL Est GFR ( Amer) 24 L (> 60) Est GFR (Non-Af Amer) 20 L (> 60) BUN/Creatinine Ratio 13 (6-26) Glucose 123 H (70-105) mg/dL Calculated Osmolality 290 (280-300) Lactic Acid 0.6 (0.5-2.2) mmol/L Calcium 9.3 (8.6-10.3) mg/dL Total Bilirubin 0.4 (0.3-1.0) mg/dL Direct Bilirubin 0.1 (0.0-0.2) mg/dL Indirect Bilirubin 0.3 (0.0-1.2) mg/dL AST 14 (13-39) Units/L ALT 11 (7-52) Units/L Alkaline Phosphatase 66 (34-104) Units/L Serum Total Protein 6.8 (6.4-8.9) g/dL Albumin 3.4 L (3.5-5.7) g/dL Globulin 3.4 (2.4-3.5) g/dL Albumin/Globulin Ratio 1.0 L (1.1-2.2) Urine Color (Yellow) Urine Clarity (Clear) Urine pH (5.0-8.0) pH Units Ur Specific [place] (1.010-1.025) Urine Protein (Neg-Trace) mg/dL Urine Glucose (UA) (Normal) mg/dL Urine Ketones (Negative) mg/dL Urine Blood (Negative) Urine Nitrite (Negative) Urine Bilirubin (Negative) Urine Urobilinogen (Normal) mg/dL Ur Leukocyte Esterase (Negative) Urine Microscopic RBC (0-3) per hpf Urine Microscopic WBC (0-3) per hpf Ur Squamous Epith Cells (None-Few) per lpf Urine Bacteria (None-Few) per hpf Hyaline Casts (None-Few) per lpf Ur Culture Indicated? (NO) 08/12/18 Range/Units 20:59 WBC (4.3-11.1) K/mcL RBC (3.82-4.97) M/mcL Hgb (11.5-15.4) g/dL Hct (35.3-44.9) % MCV (83.0-100.0) fL MCH (28.0-33.3) pg MCHC (31.6-35.5) g/dL RDW (11.5-14.5) % Plt Count (140-400) K/mcL MPV (9.4-12.4) fL Immature Gran % (0-4) % Seg Neutrophils % % Lymphocytes % % Monocytes % % Eosinophils % % Basophils % % Neutrophils # (1.6-8.9) K/mcL Lymphocytes # (0.6-4.6) K/mcL Monocytes # (0.0-1.3) K/mcL Eosinophils # (0.0-0.6) K/mcL Basophils # (0.0-0.2) K/mcL Sodium (136-145) mEq/L Potassium (3.5-5.1) mEq/L Chloride (98-107) mEq/L Carbon Dioxide (23-29) mEq/L BUN (8-23) mg/dL Creatinine (0.60-1.20) mg/dL Est GFR ( Amer) (> 60) Est GFR (Non-Af Amer) (> 60) BUN/Creatinine Ratio (6-26) Glucose (70-105) mg/dL Calculated Osmolality (280-300) Lactic Acid (0.5-2.2) mmol/L Calcium (8.6-10.3) mg/dL Total Bilirubin (0.3-1.0) mg/dL Direct Bilirubin (0.0-0.2) mg/dL Indirect Bilirubin (0.0-1.2) mg/dL AST (13-39) Units/L ALT (7-52) Units/L Alkaline Phosphatase (34-104) Units/L Serum Total Protein (6.4-8.9) g/dL Albumin (3.5-5.7) g/dL Globulin (2.4-3.5) g/dL Albumin/Globulin Ratio (1.1-2.2) Urine Color Yellow (Yellow) Urine Clarity Cloudy A (Clear) Urine pH 5.0 (5.0-8.0) pH Units Ur Specific [place] 1.019 (1.010-1.025) Urine Protein 30 H (Neg-Trace) mg/dL Urine Glucose (UA) Normal (Normal) mg/dL Urine Ketones Trace H (Negative) mg/dL Urine Blood Trace H (Negative) Urine Nitrite Positive A (Negative) Urine Bilirubin Negative (Negative) Urine Urobilinogen Normal (Normal) mg/dL Ur Leukocyte Esterase Large H (Negative) Urine Microscopic RBC 0-3 (0-3) per hpf Urine Microscopic WBC TNTC H (0-3) per hpf Ur Squamous Epith Cells None Seen (None-Few) per lpf Urine Bacteria Many H (None-Few) per hpf Hyaline Casts None Seen (None-Few) per lpf Ur Culture Indicated? YES A (NO) - Radiology Data Radiology results reviewed: Yes I reviewed the patient's radiology results.
[2018-08-12] MEDS ORDERED: Piperacillin/Tazobactam 4.5 GM in 0.9 % Sodium Chloride Mini Bag 100 ML IVPB ONE (20:01)
[2018-08-12 20:39] LABS: Basophils % 0.2 %; Hematocrit 32.8 % (35.3-44.9); Hemoglobin 10.3 g/dL (11.5-15.4); Immature Granulocytes % 0.7 % (0-4); Lymphocytes # 0.4 K/mcL (0.6-4.6); Mean Corpuscular HGB Conc 31.4 g/dL (31.6-35.5); Mean Corpuscular Hemoglobin 29.5 pg (28.0-33.3); Mean Platelet Volume 9.6 fL (9.4-12.4); Monocytes # 1.3 K/mcL (0.0-1.3); Platelet Count 270 K/mcL (140-400); Red Blood Count 3.49 M/mcL (3.82-4.97); Red Cell Distribution Width 16.3 % (11.5-14.5); Segmented Neutrophils % 91.1 %
[2018-08-12 21:02] LABS: Albumin 3.4 g/dL (3.5-5.7); Bilirubin,Direct 0.1 mg/dL (0.0-0.2); Bilirubin,Indirect 0.3 mg/dL (0.0-1.2); Bilirubin,Total 0.4 mg/dL (0.3-1.0); Calcium 9.3 mg/dL (8.6-10.3); Globulin 3.4 g/dL (2.4-3.5); Potassium 4.1 mEq/L (3.5-5.1); Total Protein 6.8 g/dL (6.4-8.9)
[2018-08-12 21:08] LABS: Bilirubin,Urine Negative (Negative); Blood,Urine Trace (Negative); Clarity,Urine Cloudy (Clear); Color,Urine Yellow (Yellow); Glucose,Urine (UA) Normal (Normal); Ketones,Urine Trace mg/dL (Negative); Leukocyte Esterase,Urine Large (Negative); Nitrite,Urine Positive (Negative); Protein,Urine 30 mg/dL (Neg-Trace); Specific Gravity,Urine 1.019 (1.010-1.025); Urobilinogen,Urine Normal (Normal)
[2018-08-12 21:13] LABS: Bacteria,Urine Many per hpf (None-Few); Hyaline Casts,Urine None Seen per lpf (None-Few); RBC,Urine 0-3 per hpf (0-3); Squamous Epithelial Cell,Urine None Seen per lpf (None-Few); WBC,Urine TNTC per hpf (0-3)
[2018-08-12] MEDS ORDERED: Ringers Solution, Lactated 1,000 ML IVC SCH (23:45)
--- NOTE | 2018-08-12 23:59 | Internal Med History&Physical ---
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 One month ago she was here for nausea, vomiting and abdominal pain with CT scan finding large fluid collection in the right peritoneum which had increased in size and she was transferred to [facility]. It is unclear what went on there but she has a drain present at this time. She comes back now from her shelter complaining of nausea, vomiting and abdominal pain again that started 2 days ago. She also had a fever of 100.5 degrees. Diarrhea was reported however as per the patient she has chronic watery stool ever since her colectomy in 2011. In the ER she had low-grade fever and she was tachycardic. He was also seen to have a leukocyte count of 20 and was given vancomycin and Pip-Tazo. UA was remarkable for nitrites and large leukocyte esterase with too numerous to count white blood cells and many bacteria seen on microscopy. She does admit to having frequent UTIs although she has no dysuric symptoms. She is admitted for further observation. She expresses her wish to be full code. Past Med Surg Social Fam HX - Past Medical History Medical history: cancer, COPD, GERD, hyperlipidemia, hypertension, renal disease Additional medical history: ckd. uterine cancer Psychiatric history: no psych history - Past Surgical History Surgical History: appendectomy, , cholecystectomy, colectomy, herniorrhaphy, knee replacement, orthopedic, other Additional surgical history: tumor removal - Social History Smoking Status: Never smoker Smokeless Tobacco Status: No Alcohol use: none Drug use: none - Family History Mother Adopted: Yes Father Adopted: Yes Internal Medicine - H&P: Meds Acetaminophen [Tylenol] 650 mg PO Q4H PRN MDD 3000 MG 12/08/17 [History] Aspirin [Adult Aspirin Regimen] 81 mg PO DAILY 12/08/17 [History] Cyclobenzaprine [Flexeril] 10 mg PO HS PRN 12/08/17 [History] Furosemide [Lasix] 20 mg PO DAILY 12/08/17 [History] Oxygen 2 l IN HS 12/08/17 [History] Pravastatin Sodium [Pravachol] 40 mg PO DAILY 12/08/17 [History] Solifenacin Succinate [Vesicare] 10 mg PO DAILY PRN 12/08/17 [History] Albuterol Sulfate [Albuterol Inhaler] 2 puff IH Q4HR PRN 03/22/18 [History] Cholecalciferol (D-3) [Vitamin D] 1,000 unit PO DAILY 03/22/18 [History] Multivitamin [Multivitamins] 1 cap PO DAILY 03/22/18 [History] Pantoprazole Sodium [Protonix] 40 mg PO BID 03/22/18 [History] Promethazine [Phenergan] 25 mg PO Q6H PRN 03/22/18 [History] Ferrous Sulfate 325 mg PO DAILY@0800 #30 tablet 03/25/18 [Rx] Albuterol Neb [Proventil Neb] 2.5 mg IH Q4HR PRN 07/05/18 [History] Ciprofloxacin HCl [Cipro] 500 mg PO BID 07/05/18 [History] DiphenhydraMINE [Benadryl] 25 mg PO Q6HR PRN 07/05/18 [History] Docusate Sodium [Dok] 100 mg PO BID PRN 07/05/18 [History] Ondansetron HCl [Zofran] 4 mg PO DAILY PRN 07/05/18 [History] amLODIPine [Norvasc] 5 mg PO DAILY 07/05/18 [History] Allergy/AdvReac Type Severity Reaction Status Date / Time azithromycin [From Zithromax] Allergy See Verified 06/28/18 09:00 Comments hydrochlorothiazide Allergy Hives Verified 06/28/18 09:00 [From Dyazide] levofloxacin [From Levaquin] Allergy Vomiting Verified 06/28/18 09:00 Triamterene [From Dyazide] Allergy Hives Verified 06/28/18 09:00 codeine AdvReac Mild Anxiety Verified 06/28/18 09:00 hydromorphone [From Dilaudid] AdvReac Anxiety Verified 06/28/18 09:00 All Systems PM: A 10-system review of systems was performed and is negative for pertinent findings except as documented above in the HPI. - Constitutional Vitals: Temp Pulse Resp BP Pulse Ox 100.3 F H 107 20 133/79 98 08/12/18 22:34 08/12/18 22:34 08/12/18 22:34 08/12/18 22:34 08/12/18 22:34 Exam: Vitals: Reviewed General: NAD Skin: Pale, warm, dry, bald. HEENT: Pale mucous membranes. (+) conjunctivae pallor. Neck: No JVD. No carotid bruits. No palpable thyroid. Chest: Normal thoracic expansion. Normal breath sounds. Clear to auscultation. Heart: Normal S1 & S2; rhythmic. No rubs or murmurs. Abdomen: Non-distended, soft and non-tender to palpation. Umbilical hernia noted. SUNSHINE drain protruding from her right argenis-abdomen. Extremities: Puffy ankles but not edematous, non-tender. Neurological: Awake, alert and oriented to person, place and time. No focal deficits. Psych: Affect appropriate. Internal Med - H&P Results - Labs CBC & Chem 7: 08/12/18 20:18 08/12/18 20:18 Labs: Short CBC 08/12/18 Range/Units 20:18 WBC 20.9 H (4.3-11.1) K/mcL Hgb 10.3 L (11.5-15.4) g/dL Hct 32.8 L (35.3-44.9) % Plt Count 270 (140-400) K/mcL Neutrophils # 19.0 H (1.6-8.9) K/mcL BMP 08/12/18 20:18 Sodium 136 Potassium 4.1 Chloride 104 Carbon Dioxide 21 L BUN 30 H Creatinine 2.39 H Glucose 123 H Calcium 9.3 Liver Function 08/12/18 Range/Units 20:18 Total Bilirubin 0.4 (0.3-1.0) mg/dL Direct Bilirubin 0.1 (0.0-0.2) mg/dL AST 14 (13-39) Units/L ALT 11 (7-52) Units/L Alkaline Phosphatase 66 (34-104) Units/L Albumin 3.4 L (3.5-5.7) g/dL Urine 08/12/18 Range/Units 20:59 Urine Color Yellow (Yellow) Urine Clarity Cloudy A (Clear) Urine pH 5.0 (5.0-8.0) pH Units Ur Specific [place] 1.019 (1.010-1.025) Urine Protein 30 H (Neg-Trace) mg/dL Urine Glucose (UA) Normal (Normal) mg/dL - Assessment and plan (1) Sepsis Current Visit: Yes Status: Suspected Assessment and plan: As evidenced by tachycardia, leukocytosis and fever. Seen to have a positive UA which suggests a UTI as the source. Prior urine cultures show a rather susceptible Klebisella pneumoniae and therefore continuing with ceftriaxone 1gr daily should be adequate pending finalization of cultures. In the same light, will give consideration to other intra-abdominal processes that could be at play given her extensive surgical history and known fluid collections (unclear if it was infected when initially drained or if sterile) therefore CT abdomen/pelvis imaging will be sought. Qualifiers: Sepsis type: sepsis due to unspecified organism Qualified Code(s): A41.9 - Sepsis, unspecified organism (2) Abdominal pain Current Visit: Yes Status: Acute Assessment and plan: The etiology is unclear. It is predominantly in her lower abdomen and there are no peritoneal signs. No certainty if this is related to her fluid collection in her right hemiabdomen or if it is associated with a UTI. Will obtain a CT abdomen/pelvis for better evaluation and follow up from there. In the interim will provide symptomatic relief measures. Qualifiers: Abdominal location: lower abdomen, unspecified Qualified Code(s): R10.30 - Lower abdominal pain, unspecified (3) Uterine cancer Current Visit: Yes Status: Chronic Assessment and plan: She will continue to follow with oncology for care. Qualifiers: Malignant neoplasm of uterus location: unspecified site of uterus Qualified Code(s): C55 - Malignant neoplasm of uterus, part unspecified (4) Advanced care planning/counseling discussion Current Visit: Yes Status: Acute Assessment and plan: Consider a director of food and nutrition services visit and palliative care services to assist with her needs. (5) DVT prophylaxis Current Visit: Yes Status: Acute Assessment and plan: SubQ heparin - Time Spent With Patient Total time spent is greater than 50% in coordination of care (as documented) at patient's floor/unit and/or counseling patient: Greater than 35 minutes
[2018-08-13] MEDS ORDERED: Acetaminophen 325 MG TABLET PO PRN
[2018-08-13] MEDS ORDERED: Albuterol 2.5 MG/3 ML NEBULIZER IH PRN
[2018-08-13] MEDS ORDERED: NON-FORMULARY MEDICATION 1 EACH EACH (Oxygen [Oxygen] 2 L) IN SCH
[2018-08-13 05:04] LABS: Basophils # 0.1 K/mcL (0.0-0.2); Basophils % 0.2 %; Hematocrit 29.2 % (35.3-44.9); Hemoglobin 9.1 g/dL (11.5-15.4); Immature Granulocytes % 0.5 % (0-4); Lymphocytes # 0.6 K/mcL (0.6-4.6); Lymphocytes % 2.8 %; Mean Corpuscular HGB Conc 31.2 g/dL (31.6-35.5); Mean Corpuscular Hemoglobin 29.6 pg (28.0-33.3); Mean Corpuscular Volume 95.1 fL (83.0-100.0); Mean Platelet Volume 9.5 fL (9.4-12.4); Monocytes # 1.4 K/mcL (0.0-1.3); Monocytes % 7.1 %; Neutrophils # 18.1 K/mcL (1.6-8.9); Platelet Count 232 K/mcL (140-400); Red Blood Count 3.07 M/mcL (3.82-4.97); Red Cell Distribution Width 16.3 % (11.5-14.5); Segmented Neutrophils % 89.4 %
[2018-08-13 05:09] LABS: Calcium 9.1 mg/dL (8.6-10.3); Magnesium 1.4 mg/dL (1.6-2.6); Potassium 3.9 mEq/L (3.5-5.1)
[2018-08-13 05:11] LABS: INR 1.2
[2018-08-13 05:14] LABS: Activated Partial Thrombo Time 28.9 Seconds (26.0-36.0)
[2018-08-13] MEDS: *HR* Heparin 5,000 UNIT/ML VIAL SQ SCH ×2 (05:40→13:29)
[2018-08-13] MEDS ORDERED: Piperacillin/Tazobactam 3.375 GM in 0.9 % Sodium Chloride Mini Bag 100 ML IVPB SCH (08:00)
[2018-08-13] MEDS ORDERED: cefTRIAXone 1,000 MG in Water for inj. (sterile) 20 ML 10 ML IVPB SCH (09:00)
[2018-08-13] MEDS ORDERED: Multivit/Ca/Min/Fe/FA 1 TAB TABLET PO SCH (09:00)
[2018-08-13] MEDS ORDERED: Aspirin Enteric Coated 81 MG Tablet PO SCH (09:00)
[2018-08-13] MEDS ORDERED: amLODIPine 5 MG TABLET PO SCH (09:00)
[2018-08-13] MEDS ORDERED: Cholecalciferol (D-3) 1,000 UNIT TABLET PO SCH (09:00)
--- NOTE | 2018-08-13 09:52 | Discharge Summary ---
- NOTES TO OUTPATIENT PROVIDER Notes to Outpatient Provider: as per [facility] Orders not resulted at time of discharge: Pending orders 08/12/18 20:18 Culture,Blood [BC] Stat 08/12/18 20:59 Culture,Urine [RM] Stat Date of Encounter: 08/13/18 Time of Encounter: 09:50 - Discharge Diagnosis (1) Sepsis Priority: Primary Status: Suspected Qualifiers: Sepsis type: sepsis due to unspecified organism Qualified Code(s): A41.9 - Sepsis, unspecified organism (2) Advanced care planning/counseling discussion Priority: Secondary Status: Acute (3) Uterine cancer Priority: Secondary Status: Chronic Qualifiers: Malignant neoplasm of uterus location: unspecified site of uterus Qualified Code(s): C55 - Malignant neoplasm of uterus, part unspecified (4) Abdominal pain Priority: Secondary Status: Acute Qualifiers: Abdominal location: lower abdomen, unspecified Qualified Code(s): R10.30 - Lower abdominal pain, unspecified (5) DVT prophylaxis Priority: Secondary Status: Acute Hospital course: "Meri Eng is a 78-year-old woman with a 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 One month ago she was here for nausea, vomiting and abdominal pain with CT scan finding large fluid collection in the right peritoneum which had increased in size and she was transferred to [facility]. It is unclear what went on there but she has a drain present at this time. She comes back now from her snf complaining of nausea, vomiting and abdominal pain again that started 2 days ago. She also had a fever of 100.5 degrees. Diarrhea was reported however as per the patient she has chronic watery stool ever since her colectomy in 2011. In the ER she had low-grade fever and she was tachycardic. He was also seen to have a leukocyte count of 20 and was given vancomycin and Pip-Tazo. UA was remarkable for nitrites and large leukocyte esterase with too numerous to count white blood cells and many bacteria seen on microscopy. She does admit to having frequent UTIs although she has no dysuric symptoms. She is admitted for further observation. She expresses her wish to be full code. " Patient presented with above presentation. On admission labs she was found to have leukocytosis, tachycardic, and febrile. Was started on IV fluids along with IV antibiotics vancomycin and Zosyn. CT abdomen and pelvis was performed showing Decreased size of an 11.4 cm x 11.0 cm x 8.6 cm cystic lesion in the right lower quadrant peritoneal cavity following placement of a percutaneous drainage catheter. However, there is apparent wall thickening with adjacent inflammatory changes and trace reactive fluid, suggesting superimposed infection including possible abscess. Continuity with bowel lumen is not excluded. As per chart review she was admitted on 07/09 with similar symptoms at that time infectious disease and oncology were consulted and recommended her to be transferred to [facility] where she has had her total hysterectomy along with other surgical procedures such as the drain placement in late June. I discussed with the patient and she is also in agreement with transferring to [facility] for further management of her abdominal pain, sepsis and possible intra-abdominal abscess. She understands the risks associated with transfer and she agrees. I called [facility] transfer center and discussed case with Dr. Ashraf who advised that the patient to be admitted under hospitalist team and he will follow-up as dairy consultant. I discussed the case with [facility] hospitalist and they accepted patient to be transferred. Nursing staff is aware of the transfer. Discharge discussed with: patient, nurse, dairy consultant - Time Spent with Patient Total time spent providing and/or coordinating discharge services: Greater than 30 minutes (35) - Discharge Medications Home Medications: Acetaminophen [Tylenol] 650 mg PO Q4H PRN MDD 3000 MG 12/08/17 [History] Cyclobenzaprine [Flexeril] 10 mg PO HS PRN 12/08/17 [History] Furosemide [Lasix] 20 mg PO DAILY 12/08/17 [History] Oxygen 2 l IN HS 12/08/17 [History] Pravastatin Sodium [Pravachol] 40 mg PO HS 12/08/17 [History] Solifenacin Succinate [Vesicare] 10 mg PO DAILY PRN 12/08/17 [History] Albuterol Sulfate [Albuterol Inhaler] 2 puff IH Q4HR PRN 03/22/18 [History] Cholecalciferol (D-3) [Vitamin D] 1,000 unit PO DAILY 03/22/18 [History] Multivitamin [Multivitamins] 1 cap PO DAILY 03/22/18 [History] Pantoprazole Sodium [Protonix] 40 mg PO DAILY PRN 03/22/18 [History] Promethazine [Phenergan] 25 mg PO Q6H PRN 03/22/18 [History] Ferrous Sulfate 325 mg PO DAILY@0800 #30 tablet 03/25/18 [Rx] Albuterol Neb [Proventil Neb] 2.5 mg IH Q4HR PRN 07/05/18 [History] Ciprofloxacin HCl [Cipro] 500 mg PO BID 07/05/18 [History] DiphenhydraMINE [Benadryl] 25 mg PO Q6HR PRN 07/05/18 [History] Docusate Sodium [Dok] 100 mg PO BID PRN 07/05/18 [History] Ondansetron HCl [Zofran] 4 mg PO DAILY PRN 07/05/18 [History] amLODIPine [Norvasc] 5 mg PO DAILY 07/05/18 [History] Aspirin [Lo-Dose Aspirin EC] 81 mg PO DAILY 08/13/18 [History] Oxybutynin Chloride [Ditropan Xl] 10 mg PO DAILY 08/13/18 [History] Simethicone [Gas-X] 80 mg PO ACHS 08/13/18 [History] Allergies/Adverse Reactions: Allergy/AdvReac Type Severity Reaction Status Date / Time azithromycin [From Zithromax] Allergy See Verified 06/28/18 09:00 Comments hydrochlorothiazide Allergy Hives Verified 06/28/18 09:00 [From Dyazide] levofloxacin [From Levaquin] Allergy Vomiting Verified 06/28/18 09:00 Triamterene [From Dyazide] Allergy Hives Verified 06/28/18 09:00 codeine AdvReac Mild Anxiety Verified 06/28/18 09:00 hydromorphone [From Dilaudid] AdvReac Anxiety Verified 06/28/18 09:00 Date of admission: 08/12/18 22:21 Primary care physician: Adriel Guzmán MD Consults: 08/12/18 23:54 Consult to Bench Worker Helper [CONS] Routine Reason for SW Consult: Discharge planning [facility] - Constitutional Vitals: Temp Pulse Resp BP Pulse Ox 98.6 F 103 16 109/67 94 08/13/18 08:09 08/13/18 08:09 08/13/18 08:09 08/13/18 08:09 08/13/18 08:09 Exam: General: NAD Skin: Pale, warm, dry, bald. HEENT: Pale mucous membranes. (+) conjunctivae pallor. Neck: No JVD. No carotid bruits. No palpable thyroid. Chest: Normal thoracic expansion. Normal breath sounds. Clear to auscultation. Heart: Normal S1 & S2; rhythmic. No rubs or murmurs. Abdomen: Non-distended, soft and non-tender to palpation. Umbilical hernia noted. SUNSHINE drain protruding from her right argenis-abdomen draining serosenginoues fluid . Extremities: Puffy ankles but not edematous, non-tender. Neurological: Awake, alert and oriented to person, place and time. No focal deficits. Psych: Affect appropriate. - Patient Status Disposition: Transfer Critical Access Hosp Condition: Serious Functional capacity at discharge: uses cane/walker Overall status at discharge: patient is not back to baseline - Discharge Instructions Follow Up With: Adriel Guzmán MD [Primary Care Provider] -
[2018-08-13] MEDS ORDERED: Ringers Solution, Lactated 1,000 ML IVC SCH (10:15)
--- NOTE | 2018-08-13 11:46 | Electrocardiograph Report ---
[place] [id number] Test Date: 2018-08-12 Pat Name: Meri Eng Department: EXAM10 Room: 3A42 Gender: F Food Checker: : 1940 Requested By: Kirby Pond Order Number: [id number] Reading MD: Alcides Mathur Measurements Intervals [place] Rate: 109 P: -30 [place]: 167 QRS: -52 QRSD: 103 T: 95 QT: 319 QTc: 430 Interpretive Statements Sinus tachycardia Atrial premature complexes Left anterior fascicular block Abnormal R-wave progression, late transition Probable left ventricular hypertrophy Electronically Signed On 08-13-2018 11:45:29 EST by Alcides Mathur
[2018-08-13 12:37] VITALS: BP 109/50
[2018-08-13] MEDS ORDERED: Aminoglycoside Consult 1 EACH MC ONE (14:14)
== END 2018-08-13 14:15 | disposition critical access hospital (66) ==
LOC: 3ANU 19:38 → EMEROOARM 19:38 → 3ANU 23:08
PROVIDERS: ADMIT Internal Medicine; ATTEND Internal Medicine